=== PATIENT | male | born 1975 | race African-American/Black ===

== ENCOUNTER 2023-03-07 11:42 | Emergency (ER) | payer SELFPAY ==
[2023-03-07] MEDS ORDERED: Sodium Chloride 0.9% 2.5 ML Syringe FLUSH PRN (12:26)
[2023-03-07] MEDS ORDERED: Ketorolac 30 MG/ML SDV IVPUSH ONE (12:26)
[2023-03-07] MEDS ORDERED: Sodium Chloride 0.9% 10 ML Syringe FLUSH PRN (12:26)
[2023-03-07] MEDS ORDERED: Sodium Chloride 0.9% 1,000 ML IV ONE (12:26)
[2023-03-07 13:08] LABS: BASOPHILS PERCENT AUTO 0.5 % (0.0-1.5); EOSINOPHILS ABSOLUTE AUTO 0.1 K/uL (0.0-0.7); EOSINOPHILS PERCENT AUTO 1.8 % (0.0-7.0); HEMATOCRIT 42.6 % (38.0-50.0); HEMOGLOBIN 14.7 g/dL (13.0-17.0); LYMPHOCYTES ABSOLUTE AUTO 2.4 K/uL (0.6-2.4); LYMPHOCYTES PERCENT AUTO 40.3 % (16.0-40.0); MEAN CORPUSCULAR HEMOGLOBIN 28.9 pg (27.0-32.0); MEAN CORPUSCULAR HGB CONC 34.5 g/dL (31.0-37.0); MEAN CORPUSCULAR VOLUME 83.7 fL (80.0-98.0); MONOCYTES ABSOLUTE AUTO 0.6 K/uL (0.0-0.8); MONOCYTES PERCENT AUTO 9.3 % (0.0-15.0); NEUTROPHILS ABSOLUTE AUTO 2.9 K/uL (1.4-5.7); NEUTROPHILS PERCENT AUTO 48.1 % (48.0-80.0); PLATELET COUNT,PLT 248 K/uL (150-400); RED BLOOD CELL COUNT 5.09 M/uL (4.50-5.90); WHITE BLOOD CELL COUNT,WBC 6.01 K/uL (4.0-11.0)
[2023-03-07 13:38] LABS: A/G RATIO 1.2 (0.9-1.6); ALBUMIN 3.8 g/dL (3.4-5.0); BILIRUBIN TOTAL 0.7 mg/dL (0.2-1.0); CALCIUM 8.7 mg/dL (8.5-10.1); CARBON DIOXIDE,CO2 21.6 mmol/L (21.0-32.0); CREATININE 1.4 mg/dL (0.8-1.3); EST CRCL DRUG DOSING (CG) 60.33 mL/min; PROTEIN TOTAL,TP 6.9 g/dL (6.4-8.2)
[2023-03-07 14:12] LABS: APPEARANCE,URINE CLEAR; BILIRUBIN,URINE NEGATIVE (NEGATIVE); COLOR,URINE YELLOW; GLUCOSE,URINE NEGATIVE (NEGATIVE); KETONES,URINE NEGATIVE (NEGATIVE); LEUKOCYTE ESTERASE,URINE NEGATIVE (NEGATIVE); NITRITE,URINE NEGATIVE (NEGATIVE); OCCULT BLOOD,URINE NEGATIVE (NEGATIVE); PH,URINE 5.5 (5.0-8.0); PROTEIN,URINE NEGATIVE (NEGATIVE); UROBILINOGEN,URINE 0.2 EU/dL (<2.0)
== END 2023-03-07 15:02 | disposition home or self-care (01) ==
LOC: MW.ED 11:42
DX: R25.2 Cramp and spasm (principal); E86.0 Dehydration; I10 Essential (primary) hypertension; Z88.6 Allergy status to analgesic agent; Z88.0 Allergy status to penicillin
CPT/HCPCS: 36415; 80053; 81003; 85025; 96361; 96374; 99283; J1885; J3490; J7030

== ENCOUNTER 2023-03-26 22:51 | Emergency (ER) | payer SELFPAY ==
[2023-03-26] MEDS ORDERED: Ibuprofen 600 MG Tab PO ONE (23:16)
[2023-03-26] MEDS ORDERED: valACYclovir 500 MG Tab PO ONE (23:17)
== END 2023-03-26 23:30 | disposition home or self-care (01) ==
LOC: MW.ED 22:51
DX: B02.9 Zoster without complications (principal); I10 Essential (primary) hypertension; Z88.0 Allergy status to penicillin; Z88.8 Allergy status to other drugs, medicaments and biological substances
CPT/HCPCS: 99282; A9270; 99283

== ENCOUNTER 2023-04-11 23:01 | Emergency (ER) | payer OTHER ==
[2023-04-11] MEDS ORDERED: Sodium Chloride 0.9% 10 ML Syringe FLUSH PRN (23:07)
[2023-04-11] MEDS ORDERED: Sodium Chloride 0.9% 2.5 ML Syringe FLUSH PRN (23:07)
[2023-04-11 23:18] LABS: BASOPHILS PERCENT AUTO 0.2 % (0.0-1.5); EOSINOPHILS ABSOLUTE AUTO 0.1 K/uL (0.0-0.7); EOSINOPHILS PERCENT AUTO 1.2 % (0.0-7.0); HEMATOCRIT 38.8 % (38.0-50.0); HEMOGLOBIN 13.4 g/dL (13.0-17.0); LYMPHOCYTES ABSOLUTE AUTO 3.2 K/uL (0.6-2.4); LYMPHOCYTES PERCENT AUTO 35.5 % (16.0-40.0); MEAN CORPUSCULAR HGB CONC 34.5 g/dL (31.0-37.0); MONOCYTES ABSOLUTE AUTO 0.5 K/uL (0.0-0.8); MONOCYTES PERCENT AUTO 5.4 % (0.0-15.0); NEUTROPHILS ABSOLUTE AUTO 5.1 K/uL (1.4-5.7); NEUTROPHILS PERCENT AUTO 57.7 % (48.0-80.0); NRBC ABSOLUTE 0 K/uL; PLATELET COUNT,PLT 276 K/uL (150-400); RED BLOOD CELL COUNT 4.62 M/uL (4.50-5.90); WHITE BLOOD CELL COUNT,WBC 8.89 K/uL (4.0-11.0)
[2023-04-11 23:25] LABS: INR 1.02 (0.86-1.11)
[2023-04-11] MEDS ORDERED: Iopamidol 755 MG/ML 500 ML Multipack Bottle IVPUSH ONE (23:25)
[2023-04-12 00:12] LABS: LACTIC ACID 2.1 mmol/L (0.4-2.0)
[2023-04-12 00:19] LABS: ALBUMIN 3.5 g/dL (3.4-5.0); BLOOD UREA NITROGEN,BUN 10 mg/dL (7.0-18.0); CALCIUM 8.7 mg/dL (8.5-10.1); CARBON DIOXIDE,CO2 23.4 mmol/L (21.0-32.0); CHLORIDE,CL 104 mmol/L (98-107); CREATININE 1.2 mg/dL (0.8-1.3); ETHANOL BLOOD MEDICAL 110 mg/dL; GLUCOSE RANDOM 97 mg/dL (74-106); LIPASE 83 U/L (73-393); POTASSIUM,K 3.2 mmol/L (3.5-5.1); SODIUM,NA 140 mmol/L (136-148)
[2023-04-12 00:34] LABS: ALANINE AMINOTRANSFERASE,ALT 24 IU/L (14-63); ALKALINE PHOSPHATASE 85 U/L (46-116); ASPARTATE AMNIOTRANSFERASE,AST 21 IU/L (15-37); BILIRUBIN TOTAL 0.2 mg/dL (0.2-1.0); PROTEIN TOTAL,TP 6.9 g/dL (6.4-8.2)
[2023-04-12 00:35] LABS: ESTIMATED GFR 75 mL/min (>60)
== END 2023-04-12 01:12 | disposition left against medical advice (07) ==
LOC: MW.ED 23:01
DX: R51.9 Headache, unspecified (principal); R40.20 Unspecified coma; I10 Essential (primary) hypertension; Z88.0 Allergy status to penicillin; Z88.8 Allergy status to other drugs, medicaments and biological substances
CPT/HCPCS: 36415; 70450; 70496; 70498; 71045; 72125; 80053; 80307; 83605; 83690; 84484; 85025; 85610; 93005; 99285; Q9967; 93010